=== PATIENT | male | born 1960 | race Caucasian/White ===

== ENCOUNTER → 2016-12-12 | Outpatient (CLI) | payer BC, OTHER ==
[~2016-12-12] MED LIST: ACCUNEB SO1.25 MG/1 INH; CARDIZEM CD240 MG PO; ELIQUIS5 MG PO; LISINOPRIL10 MG PO; MULTAQ400 MG PO; TENORMIN50 MG PO; TRICOR48 MG PO; VASCEPA1 GM PO; ZOLOFT50 MG PO
[2016-12-12 07:56] LABS: HEMATOCRIT 31.9 % (42.0-52.0); HEMOGLOBIN 9.7 gm/dL (14.0-18.0); MCH 19.6 pg (26.0-34.0); MCHC 30.3 % (28.0-37.0); MCV 64.7 fL (80.0-100.0); RBC 4.93 mil/uL (4.50-6.00); RDW 19.5 % (10.5-14.5); WBC 6.5 thou/uL (4.0-11.0)
[2016-12-12 08:20] LABS: CALCIUM 8.7 mg/dL (8.5-10.1); CREATININE 1.5 mg/dL (0.6-1.3); POTASSIUM 4.6 mmol/L (3.5-5.1)
[2016-12-12 08:26] LABS: ALBUMIN 3.6 g/dL (3.4-5.0); TOTAL BILIRUBIN 0.9 mg/dL (<0.1-1.0); TOTAL PROTEIN 7.2 g/dL (6.4-8.2)
== END ==
LOC: CAT 07:20
PROVIDERS: Internal Medicine Cardiovascular Disease
DX: I48.91 Unspecified atrial fibrillation (principal); Q27.8 Other specified congenital malformations of peripheral vascular system; I77.819 Aortic ectasia, unspecified site; R59.9 Enlarged lymph nodes, unspecified; K44.9 Diaphragmatic hernia without obstruction or gangrene

== ENCOUNTER 2017-02-07 06:36 | Outpatient (CLI) | payer BC, OTHER ==
[~2017-02-07] VITALS: Ht 182.9 cm; Wt 102.1 kg
[2017-02-07] VITALS (9 sets, daily range): BP systolic 107–128; BP diastolic 54–67
--- NOTE | ~2017-02-07 | D ---
[facility] [place] [address] DISCHARGE SUMMARY Name: EVAROBERTO Room #: DEP [facility] Elizabeth#: [id number] Admission: 02/07/17 Attend Phys: Andrey Cortez MD Discharge: 02/08/17 Date of : 56 Report #: [id number] THIS REPORT FOR: //name// CC: Andrey Perezbernice Amelia PREOPERATIVE DIAGNOSIS: Atrial fibrillation. PROCEDURES PERFORMED: AFib ablation. HISTORY: The patient is a gentleman with a history of atrial fibrillation status post cardioversion with clinical recurrence, was here for an AFib ablation. The patient underwent AFib ablation and I was only able to isolate completely the left inferior pulmonary vein with the cryoablation balloon. Therefore, I was able to partially isolate the left superior and right superior pulmonary veins and I was not able to place the cryoballoon in the right inferior pulmonary vein because it had a very inferior takeoff. Therefore, I transitioned to RF ablation and was able to isolate the left superior and right superior pulmonary vein and then turned my attention to the right inferior pulmonary vein and this was isolated as well. There were no complications. HOSPITAL COURSE: The patient was monitored overnight and did well. His vitals remained stable. He remained in sinus rhythm. He was resumed on his Multaq. His Eliquis was not started immediately last night because he did have some recurrent bleeding from the groin in the postoperative setting; however, this resolved. Therefore, he received his dose of Eliquis on the day of discharge. As such, he was deemed stable for discharge home. I instructed him to continue on Eliquis, Multaq and atenolol therapy. We will discontinue the diltiazem as he does not need this much rate control medications. I instructed him to follow up with me in 2 weeks and we discussed the discharge instructions. <ELECTRONICALLY SIGNED> By: Andrey Cortez MD 02/25/17 0856 0840 1029 Andrey Cortez MD /nt
--- NOTE | ~2017-02-07 | P ---
[facility] [place] [address] PROCEDURE REPORT Name: ROBERTO VELASQUEZ Room #: DEP [facility] RikiCelina#: [id number] Admission: 02/07/17 Attend Phys: Andrey Cortez MD Discharge: 02/08/17 Date of : 56 Report #: [id number] THIS REPORT FOR: //name// CC: Andrey Romo Amelia PREOPERATIVE DIAGNOSIS: Atrial fibrillation. POSTOPERATIVE DIAGNOSIS: Atrial fibrillation. HISTORY: The patient is a 57-year-old male with a history of recurrent atrial fibrillation despite antiarrhythmic drug therapy. He is here for an AFib ablation. ANESTHESIA: The patient underwent MAC anesthesia with no anesthesia related complications. DESCRIPTION OF PROCEDURE: The patient underwent informed consent. We discussed the details of the procedure including the risks, which include but not limited to bleeding, vascular damage, stroke, TX, and cardiac perforation. He understood these risks and is willing to proceed. The patient was brought to the EP laboratory in a fasting and sedated state, prepped and draped in a sterile fashion. At baseline, he was back in AFib with a heart rate of 718 milliseconds, QRS duration 85 milliseconds and QT interval 438 milliseconds. Next, I injected lidocaine to the right groin region and obtained access to the right femoral vein times 3 placing an 8 Liberian, 9 Liberian and 7-Liberian locking sheath in the right femoral vein. Under fluoroscopic guidance, I placed a decapolar catheter into the coronary sinus and ice catheter into the right atrium. Next, the patient was systemically heparinized and a transseptal was performed using a SL1 sheath and [place] needle. This was straightforward and had a nice anterior and inferior position from a transseptal. Next, I placed a Lasso into the left atrium and performed a 3D geometry of the left atrium. We merged this with the CT scan. Next, I exchanged the SL1 sheath for the cryosheath and balloon. Next, several attempts were made to isolate the left superior pulmonary vein, but this was unsuccessful. I then turned my attention to the left inferior pulmonary vein and this isolated after 2 freezes. The right superior pulmonary vein also would not isolate after multiple freezing attempts as there were still some small electrograms noted. The right inferior pulmonary vein had a more of an inferior takeoff, which made placing the cryoballoon in this very challenging. I was eventually able to get a wire down into this right inferior pulmonary vein, but the cryoballoon would not tract down this inferior lead. As such, we have not had much luck with the cryoballoon. I therefore removed the cryoballoon and placed the Lasso via the cryosheath into the left atrium. I then opened up a SmartTouch ThermoCool ablation catheter and performed additional ablation. I placed the SmartTouch ThermoCool via a SL1 sheath into the left atrium. Next, I [address] [address] PROCEDURE REPORT Name: EVAROBERTO Room #: DEP [facility] Johnson#: [id number] Admission: 02/07/17 Attend Phys: Andrey Cortez MD Discharge: 02/08/17 Date of : 56 Report #: [id number] isolated the left superior pulmonary vein. Again, this vein was a very challenging to isolate, I think due to its oblong shape. However, eventually were able to demonstrate both entrance and exit block. I then turned my attention to the right superior pulmonary vein and there were some small electrograms noted at the blanca and this isolated as well. Next, I turned my attention to the right inferior pulmonary vein. Again, this vein was somewhat challenging given how inferior the takeoff was, which more typically has a horizontal takeoff. Using the ablation catheter and Lasso in this vein, we were able to isolate this vein with entrance and exit block. All veins were reinterrogated and the everything remained isolated. I then performed a cardioversion with yazidism at 200 joule synchronized cardioversion with yazidism of sinus rhythm. All veins were tested and found to be isolated. Post-ablation, the patient was in sinus rhythm with a sinus cycle length of 1290 milliseconds, TX interval at 202 milliseconds, QRS duration 80 milliseconds and the QT interval of 500 milliseconds. As such, I verified with intracardiac ultrasound that there was no pericardial effusion. Then we administered protamine through reversed heparin. Once his ACT was within acceptable range, all catheters and sheaths were pulled. Hemostasis was obtained and the patient awoke neurologically and hemodynamically intact with no complications and no significant bleeding. CONCLUSIONS: 1. Successful isolation of the 4 pulmonary veins using initially cryoablation and then touch up of the veins with a SmartTouch ThermoCool. By: [id number] Andrey Cortez MD /anne-marie
--- NOTE | ~2017-02-07 | EKG ---
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 : 1960 Requested By: Andrey Cortez Order Number: [id number] MD: Domo Wong Measurements Intervals [place] Rate: 62 P: 24 NV: 178 QRS: -16 QRSD: 111 T: 42 QT: 465 QTc: 473 Interpretive Statements Sinus rhythm Borderline left axis deviation Borderline ST depression, lateral leads Baseline wander in lead(s) I,II,aVR Compared to ECG 10/03/2016 12:36:32 No significant changes Electronically Signed On 02-08-2017 7:40:05 CDT by Domo Wong [email or web address] <ELECTRONICALLY SIGNED> By: Domo Wong MD, [facility] 02/08/17 0740 0729 Domo Wong MD, [facility] /EPI
[~2017-02-07 06:36] MED LIST changes: -ACCUNEB SO1.25 MG/1 INH
[2017-02-07] MEDS ORDERED: CARDIZEM CD240 MG PO (06:58)
[2017-02-07 07:30] LABS: HEMATOCRIT 28.5 % (42.0-52.0); HEMOGLOBIN 8.9 gm/dL (14.0-18.0); MCH 19.3 pg (26.0-34.0); MCHC 31.1 g/dL (28.0-37.0); MCV 62.1 fL (80.0-100.0); PLATELET COUNT 228 thou/uL (150-400); RBC 4.58 mil/uL (4.50-6.00); RDW 20.1 % (10.5-14.5); WBC 4.8 thou/uL (4.0-11.0)
[2017-02-07 07:37] LABS: MANUAL DIFF YES
[2017-02-07 07:45] LABS: ALBUMIN 3.3 g/dL (3.4-5.0); CALCIUM 8.7 mg/dL (8.5-10.1); CREATININE 1.4 mg/dL (0.6-1.3); TOTAL BILIRUBIN 0.6 mg/dL (<0.1-1.0); TOTAL PROTEIN 6.6 g/dL (6.4-8.2)
[2017-02-07 07:56] LABS: APTT 22.5 Seconds (24.5-32.8); INR 1.1; PROTIME 11.4 Seconds (9.3-11.4)
[2017-02-07 08:28] LABS: ABSOLUTE NEUTROPHILS 3.1 thou/uL (1.4-8.2); ANISOCYTOSIS 2+; TOTAL CELL COUNT 100
[2017-02-07 08:29] LABS: HYPOCHROMASIA 3+; MICROCYTES 3+; OVALOCYTES 1+; POLYCHROMASIA OCCASIONAL
[2017-02-08 04:24] VITALS: BP 124/73
[2017-02-08] MEDS ORDERED: ACCUNEB SO1.25 MG/1 INH (06:26)
[2017-02-08 07:05] VITALS: BP 116/63
[2017-02-08] MEDS ORDERED: MULTAQ400 MG PO (08:35)
[2017-02-08 09:15] VITALS: BP 116/63
== END 2017-02-08 10:30 | disposition home or self-care (01) ==
LOC: CATH 06:36 → 2N 16:23 → CATH 02-08 10:30
PROVIDERS: Internal Medicine Cardiovascular Disease
DX: I48.91 Unspecified atrial fibrillation (principal); I10 Essential (primary) hypertension; I35.1 Nonrheumatic aortic (valve) insufficiency; K21.9 Gastro-esophageal reflux disease without esophagitis; J45.909 Unspecified asthma, uncomplicated; Z87.891 Personal history of nicotine dependence; Z98.890 Other specified postprocedural states
CPT/HCPCS: 10081; 62110; 62900; 65020; 65043; 65090; 70005

== ENCOUNTER → 2017-02-27 | Outpatient (CLI) | payer BC, OTHER ==
[~2017-02-27] MED LIST changes: +ACCUNEB SO1.25 MG/1 INH
--- NOTE | ~2017-02-27 | 2DMMODE ---
[facility] [place] [address] 2 D/M-MODE ECHOCARDIOGRAM Name: EVAROBERTO Room #: REG [facility]#: [id number] Admission: 02/27/17 Attend Phys: Andrey Cortez Discharge: Date of : 56 Date of Service: 02/27/17 1139 Report #: [id number] THIS REPORT FOR: //name// APPROVED REPORT Study performed: 02/27/2017 10:11:41 EXAM: Comprehensive 2D, Doppler, and color-flow Echocardiogram Patient Location: Out-Patient Blood Pressure: 128/64 mmHg HR: 55 bpm Rhythm: NSR Other Information Study Quality: Adequate/Difficult windows. Indications Hx: Afib with recent ablation, short of breath. Hx: HTN, HLP 2D Dimensions RVDd: 47.33 mm LVEF(%): 49.93 (>50%) IVSd: 12.18 (7-11mm) LVOT Diam: 25.18 (18-24mm) LVDd: 56.31 mm PWd: 11.89 (7-11mm) Ascending Aorta: 43.03 mm LVDs: 41.85 (25-40mm) Aortic Root: 43.38 mm Sousa's LVEF: 49.93 % Volumes Left Atrial Volume (Systole) Single Plane 4CH: 104.37 mL Single Plane 2CH: 143.95 mL LA ESV Index: 57.00 mL/m2 Aortic Valve AoV Peak Omer.: 1.81 m/s AO Peak Gr.: 13.05 mmHg LV Max P.37 mmHg LV Max: 1.26 m/s Mitral Valve MV PHT: 54.62 ms MV E Max Omer.: 0.93 m/s E/A Ratio: 1.8 MV A Omer.: 0.53 m/s MV Decel. Time: 188.33 ms [facility] [place] [address] 2 D/M-MODE ECHOCARDIOGRAM Name: ROBERTO VELASQUEZ Room #: [facility]#: [id number] Admission: 02/27/17 Attend Phys: Andrey Carbajalchonnhi Discharge: Date of : 56 Date of Service: 02/27/17 1139 Report #: [id number] Pulmonary Valve PV Peak Omer.: 1.06 m/s PV Peak Gr.: 4.47 mmHg Tricuspid Valve TR Peak Omer.: 2.53 m/s RAP Estimate: 5.00 mmHg TR Peak Gr.: 25.68 mmHg RVSP: 31.00 mmHg Left Ventricle The left ventricle is normal size. There is normal LV segmental wall motion. Borderline concentric left ventricular hypertrophy. Left ventricular systolic function is normal. LVEF is 50-55%. Right Ventricle Right ventricle is moderately dilated. The right ventricular systolic function is normal. Atria Left atrium is dilated. PFO/ASD is suggested with color doppler. Right atrium is dilated. Aortic Valve The aortic valve is normal in structure. At lest moderate aortic regurgitation is noted. There is no aortic valvular stenosis. Mitral Valve The mitral valve is normal in structure. Trace mitral regurgitation. Tricuspid Valve The tricuspid valve is normal in structure. There is trace tricuspid regurgitation. The right atrial pressure is estimated at 5 mmHg. Estimated PAP is 31mmHg. Pulmonic Valve Pulmonic valve is not well visualized. Trace pulmonic regurgitation. Great Vessels Aortic root is dilated at 4.4cm. Ascending aorta is dilated at 4.3cm IVC is normal in size and collapses >50% with inspiration. Pericardium There is no pericardial effusion. [facility] [address] [place] [address] 2 D/M-MODE ECHOCARDIOGRAM Name: ROBERTO VELASQUEZ [facility] [id number] Admission: 02/27/17 Attend Phys: [facility] Discharge: Date of : 56 Date of Service: 02/27/17 1139 Report #: [id number] <Conclusion> The left ventricle is normal size. Borderline concentric left ventricular hypertrophy. LVEF is 50-55%. Right ventricle is moderately dilated. The right ventricular systolic function is normal. Left atrium is dilated. Right atrium is dilated. Left atrium is dilated. Right atrium is dilated. PFO/ASD is suggested with color doppler. The aortic valve is normal in structure. At lest moderate aortic regurgitation is noted. The mitral valve is normal in structure. Trace mitral regurgitation. Aortic root is dilated at 4.4cm. Ascending aorta is dilated at 4.3cm <ELECTRONICALLY SIGNED> By: Peña Hickey MD 02/27/17 1139 1139 1139 Peña Hickey MD /INF
== END ==
LOC: CV 08:59
DX: I48.91 Unspecified atrial fibrillation (principal); I10 Essential (primary) hypertension; E78.00 Pure hypercholesterolemia, unspecified